=== PATIENT | male | born 1975 | race Caucasian/White ===

== ENCOUNTER → 2018-12-11 10:20 | Outpatient (CLI) | payer OTHER, SELFPAY ==
[2018-12-11 11:16] LABS: Hematocrit 45.8 % (41-53); Hemoglobin 15.7 g/dL (13.5-17.5); Mean Corpuscular HGB Conc 34.2 % (30-36); Mean Corpuscular Hemoglobin 29.6 PG (26-34); Mean Corpuscular Volume 86.6 fL (80-100); Platelet Count 282 X10^3/uL (150-400); Red Blood Cell Count 5.29 X10^6/uL (4.5-5.9); Red Cell Distribution Width 13.1 % (11.6-14.8); White Blood Cell Count 5.1 X10^3/uL (4.5-11.0)
[2018-12-11 11:36] LABS: Alanine Aminotransferase 28 IU/L (21-72); Albumin 4.2 g/dL (3.5-5.0); Albumin Globulin Ratio 1.4 (1.0-2.8); Alkaline Phosphatase 76 U/L (38-126); Aspartate Aminotransferase 21 IU/L (17-59); Bilirubin Total 0.4 mg/dL (0.2-1.3); Blood Urea Nitrogen 18 mg/dL (9-20); Calcium 9.1 mg/dL (8.4-10.2); Carbon Dioxide 27 mmol/L (22-32); Chloride 99 mmol/L (98-107); Cholesterol 172 mg/dL (140-199); Estimated Glomerular Filt Rate > 60.0 mL/min (>60); Globulin 2.9 g/dL (1.7-4.1); Glucose 91 mg/dL (70-100); HDL Cholesterol 37 mg/dL (40-60); HEMOLYSIS < 15 (0-50); LDL Cholesterol Calculated 119 mg/dL (<100); Potassium 3.9 mmol/L (3.4-5.1); Sodium 136 mmol/L (137-145); Total Protein 7.1 g/dL (6.3-8.2); Triglycerides 82 mg/dL (35-150)
[2018-12-11 11:54] LABS: Neutrophils Absolute Manual 2040 /uL (3000-5900); RBC Morphology Normal Morphology; Total Cells Counted 100
== END ==
PROVIDERS: PCP Family Medicine; Visit Provider Family Medicine
DX: I10 Essential (primary) hypertension (principal)
CPT/HCPCS: 36415; 80053; 80061; 85025

== ENCOUNTER → 2021-10-06 08:02 | Outpatient (CLI) | payer OTHER, SELFPAY ==
--- NOTE | 2021-10-06 08:05 | DI.RAD.S_ITS ---
PROCEDURE: XR SHOULDER LT MIN 2V INDICATIONS: Possible calcific tendinitis; impingement; pain TECHNIQUE: 3 views of the shoulder were acquired. COMPARISON: None. FINDINGS: Bones: No fractures or dislocations. No suspicious bony lesions. Visualized ribs appear intact. Soft tissues: No suspicious soft tissue calcifications. IMPRESSION: No radiographic evidence of calcific tendinitis. Dictated by: Preeti Bro MD, PhD on 10/06/2021 at 11:29 Approved by: Preeti Bro MD, PhD on 10/06/2021 at 11:29
== END ==
PROVIDERS: PCP Family Medicine; Referring Provider Physician Assistant; Visit Provider Physician Assistant
DX: M25.512 Pain in left shoulder (principal); M75.40 Impingement syndrome of unspecified shoulder
CPT/HCPCS: 73030

== ENCOUNTER → 2021-11-05 07:50 | Outpatient (CLI) | payer OTHER, SELFPAY ==
[2021-11-05 08:14] LABS: Add Manual Diff / Slide Review NO; Basophils Absolute Auto 0 /uL (0-100); Basophils Percent Auto 0.8 % (0-2); Eosinophils Absolute Auto 100 /uL (0-450); Eosinophils Percent Auto 1.8 % (2-4); Hematocrit 45.5 % (41-53); Hemoglobin 15.6 g/dL (13.5-17.5); Lymphocytes Absolute Auto 2000 /uL (1100-4500); Lymphocytes Percent Auto 37.5 % (25-40); Mean Corpuscular HGB Conc 34.3 % (30-36); Mean Corpuscular Hemoglobin 29.5 PG (26-34); Monocytes Absolute Auto 600 /uL (0-900); Monocytes Percent Auto 10.3 % (3-14); Neutrophils Absolute Auto 2700 /uL (1500-7000); Neutrophils Percent Auto 49.6 % (50-75); Platelet Count 253 X10^3/uL (150-400); Red Blood Cell Count 5.29 X10^6/uL (4.5-5.9); Red Cell Distribution Width 13.5 % (11.6-14.8); White Blood Cell Count 5.4 X10^3/uL (4.5-11.0)
[2021-11-05 08:31] LABS: Alanine Aminotransferase 40 IU/L (<50); Albumin 4.2 g/dL (3.5-5.0); Albumin Globulin Ratio 1.6 (1.0-2.8); Alkaline Phosphatase 55 U/L (38-126); Aspartate Aminotransferase 25 IU/L (17-59); Bilirubin Total 0.7 mg/dL (0.2-1.3); Blood Urea Nitrogen 15 mg/dL (9-20); Calcium 9.1 mg/dL (8.4-10.2); Carbon Dioxide 25 mmol/L (22-32); Chloride 102 mmol/L (98-107); Cholesterol 181 mg/dL (140-199); Estimated Glomerular Filt Rate > 60.0 mL/min (>60); Globulin 2.6 g/dL (1.7-4.1); Glucose 101 mg/dL (70-100); HDL Cholesterol 37 mg/dL (40-60); HEMOLYSIS < 15 (0-50); LDL Cholesterol Calculated 130 mg/dL (<100); Potassium 4.2 mmol/L (3.4-5.1); Sodium 137 mmol/L (137-145); Total Protein 6.8 g/dL (6.3-8.2); Triglycerides 69 mg/dL (35-150)
[2021-11-05 08:56] LABS: Thyroid Stimulating Hormone 2.38 uIU/mL (0.47-4.68)
== END ==
PROVIDERS: PCP Family Medicine; Referring Provider Physician Assistant; Visit Provider Physician Assistant
DX: I10 Essential (primary) hypertension (principal); R53.83 Other fatigue; E78.5 Hyperlipidemia, unspecified
CPT/HCPCS: 36415; 80053; 80061; 84443; 85025

== ENCOUNTER → 2021-12-09 09:53 | Outpatient (CLI) | payer OTHER, SELFPAY ==
--- NOTE | 2021-12-09 09:58 | DI.CT.S_ITS ---
PROCEDURE: CT SOFT TISSUE NECK W CON INDICATIONS: non tender lymphadenopathy LEFT TECHNIQUE: After the administration of intravenous contrast, 3.0 mm axial sections acquired from the sella to the aortic arch. Additional oblique axial 3.0 mm sections acquired through the pharynx. 3 mm thick coronal and sagittal reformats were generated. For radiation dose reduction, the following was used: automated exposure control. COMPARISON: None. FINDINGS: Image quality: Excellent. Lymph nodes: Mildly enlarged bilateral level 2A neck lymph nodes. Largest left level 2A neck lymph node measures 1.1 centimeter in short axis. Largest right level 2A neck lymph node measures 1.1 centimeter in short axis. Vessels: Visualized vasculature appears patent. Neck spaces: The oropharynx, nasopharynx, and pharynx demonstrate no mucosal lesions. The vocal cords, false vocal cords, pyriform sinuses, epiglottis, vallecula, and tongue base all appear normal. Extramucosal spaces appear unremarkable. No abnormal mass, soft tissue inflammation or soft tissue fluid collections identified deep to metallic BB localizer placed over the left lateral soft tissues of the neck in the region of clinical interest. Glands: The parotid and submandibular glands appear normal. Thyroid gland is within normal limits Miscellaneous: Visualized brain and orbits appear normal. Lung apices appear clear. Superficial soft tissues appear normal. Bones: No suspicious bony lesions. Left maxillary sinus mucous retention cyst versus polyp. The mastoids appear unremarkable. IMPRESSION: 1. Mild bilateral level 2A neck lymphadenopathy which could be reactive or neoplastic. 2. No mucosal based neoplasm. Dictated by: Preeti Bro MD, PhD on 12/09/2021 at 15:44 Approved by: Preeti Bro MD, PhD on 12/09/2021 at 15:51
== END ==
PROVIDERS: PCP Family Medicine; Referring Provider Physician Assistant; Visit Provider Physician Assistant
DX: R59.0 Localized enlarged lymph nodes (principal)
CPT/HCPCS: 70491

== ENCOUNTER → 2022-01-04 09:06 | Outpatient (CLI) | payer OTHER, SELFPAY ==
[2022-01-04 11:04] LABS: COVID19 -Nasal RAPID Negative (Negative)
== END ==
PROVIDERS: PCP Family Medicine; Visit Provider Surgery
DX: Z20.822 Contact with and (suspected) exposure to COVID-19 (principal); Z01.818 Encounter for other preprocedural examination
CPT/HCPCS: 87635; C9803

== ENCOUNTER 2022-01-05 06:51 | Day surgery (SDC) | payer OTHER, SELFPAY ==
[2021-12-30 08:00] VITALS: BMI 37.5
--- NOTE | 2022-01-05 | PATH_ITS ---
[facility] Accession Number: [id number] No. of containers..01 Tissue No. of containers..01 Tissue No. of containers..04 Other (Miscellaneous) . 01 Material submitted: . PART A: lymph node - LEFT NECK LYMPH NODE PART B: lymph node - LEFT NECK LYMPH NODE . 01 Diagnosis: A. Neck, Left Side, Lymph Node, Excisional Biopsy: Primarily mature adipose tissue with focal fat necrosis. Scant fibrous tissue. Lymphoid tissue not identified. . B. Neck, Left Side, Lymph Node, Excisional Biopsy: Primarily mature adipose tissue with focal fat necrosis. Scant fibrous tissue. Lymphoid tissue not identified. [facility] 01/12/2022 1520 Local . 01 Comment: The adipose tissue in specimen B exhibits a small amount of brown fat. . The four submitted slides which appear to represent touch preps or smears are reviewed and are noncontributory. . 01 Electronically signed: . Annette Sibley MD, Pathologist NPI- [id number] . 01 Gross description: . A. Received in formalin, labeled with the patient's name and left neck lymph node, and consists of a single yellow to pink-rees lymph node candidate measuring 0.6 x 0.4 x 0.3 cm. The specimen is submitted entirely and intact in cassette A1. B. Received in formalin, labeled with the patient's name and left neck lymph node, and consists of a yellow to pink-rees lymph node candidate measuring 0.8 x 0.5 x 0.3 cm. The specimen is submitted entirely and intact in cassette B1. Parts C and D consist of two slides received in a cardboard slide floyd labeled with the patient's name and left neck lymph node. The slides are not individually labled. Parts E and F consist of two unstained slides in a container of alcohol labeled with the patient's name and left neck lymph node. However, the slides are not individually labeled. ([id number]) /[facility] 01/07/2022 0335 Local . 01 Pathologist provided ICD-10: R59.1 . 01 CPT . 492675, 658439 Specimen Comment: A courtesy copy of this report has been sent to [phone] Performed at: 01 [facility] [address] [place] [address], [place], [place] [id number] MD Kenney Sol MD Phone: [phone]
[2022-01-05 07:26] VITALS: BP 128/80; PULSE 97; RESP 20; TEMP 36.5; O2SAT 97; BMI 37.5
[2022-01-05 07:33] VITALS: BMI 37.5
[2022-01-05] MEDS: LACTATED RINGERS 1,000 ML 100 ML IV (07:33)
--- NOTE | 2022-01-05 07:37 | PM.PREOP ---
Pre-operative Note Interval Note History & Physical reviewed/Exam performed by Physician: Yes Changes to H&P: No
[2022-01-05] MEDS: CEFAZOLIN 2 GM/20 ML SYRINGE IV (07:55)
--- NOTE | 2022-01-05 08:04 | SUR.OPER ---
Supine on padded OR bed, head on pillow, right arm secured on padded arm board at <90 degrees abduction, left arm padded with gel pad and tucked at side with draw sheet, egs uncrossed, safety belt at abdomen, tape over blanket over lower legs, gel pad under bilateral heels.
[2022-01-05] MEDS: BUPIVACAINE 0.25% (PF) VIAL 30 ML INJ (08:10)
[2022-01-05 08:45] VITALS: BP 128/77; PULSE 83; RESP 12; TEMP 36.1; O2SAT 94
[2022-01-05 08:50] VITALS: BP 121/77; PULSE 81; RESP 11; O2SAT 95
[2022-01-05 08:54] VITALS: BP 110/76; PULSE 78; RESP 11; O2SAT 94
[2022-01-05 09:00] VITALS: BP 123/81; PULSE 77; RESP 13; TEMP 36.2; O2SAT 95
[2022-01-05 09:07] VITALS: BP 117/75; PULSE 77; RESP 9; TEMP 36.2; O2SAT 96
--- NOTE | 2022-01-05 09:14 | PM.OP.1 ---
Operative Date/Time/Diagnoses Date of procedure: 01/05/22 Time of procedure: 09:14 Pre-op diagnosis: left cervical lymphadenopathy Post-op diagnosis: same Procedure & Clinicians Procedure: Excisional biopsy of left cervical lymph nodes Same procedure as scheduled: Yes Indications: Cervical lymphadenopathy Surgeon: Veto Kirk Anesthesia Type: General Operative Notes Findings: small cluster of left cervical lymphnodes beneath the sterocleoidomastoid muscle. Specimen(s): other (left cervical nodes) Estimated Blood Loss (mL): 5 Procedure in detail: Patient was brought to the operating room placed supine on the table. Bilateral lower extremity compression devices were applied. He received Ancef prior to skin incision. General anesthesia was induced he was intubated with an endotracheal tube. The left neck was prepped and draped in sterile fashion. Time-out was performed. The anterior border of the sternocleidomastoid was marked. A incision in zone 2 of the neck was made just anterior to the sternocleidomastoid. The platysma was incised. The sternocleidomastoid muscle was retracted posteriorly. Superficial to the carotid sheath there were was a cluster slightly enlarged cervical lymph nodes diameter less than 1 cm. The lymphatic tissue was excised using electro cautery. The specimen was passed off the field. Wound was checked for hemostasis. The subcutaneous tissue was then closed with 3-0 Vicryl skin closed with 4-0 Monocryl followed by Dermabond and Steri-Strips. Patient tolerated procedure extubated transferred to recovery in stable condition. Complications: none Post-operative Condition: stable Disposition: same day surgery
== END 2022-01-05 09:28 | disposition home or self-care (01) ==
PROVIDERS: PCP Family Medicine; Referring Provider Surgery; Visit Provider Surgery
PROC: (CPT 38510; principal; 2022-01-05 07:45)
DX: M79.89 Other specified soft tissue disorders (principal); I10 Essential (primary) hypertension; F41.9 Anxiety disorder, unspecified
CPT/HCPCS: 38510; 82962; J0690; J1100; J2250; J2405; J2704; J3010

== ENCOUNTER 2022-04-30 02:41 | Emergency (ER) | payer OTHER, SELFPAY ==
[2022-04-30 02:58] VITALS: BP 144/77; PULSE 86; RESP 18; TEMP 36.6; O2SAT 99; BMI 36.8
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
[2022-04-30] MEDS: dexAMETHasone 4 MG TABLET 12 MG PO (04:03)
[2022-04-30 04:06] VITALS: BP 116/68; PULSE 78; RESP 17; O2SAT 99
== END 2022-04-30 04:06 | disposition home or self-care (01) ==
PROVIDERS: Emergency Provider Emergency Medicine; PCP Family Medicine
DX: T78.3XXA Angioneurotic edema, initial encounter (principal)
CPT/HCPCS: 99283

== ENCOUNTER → 2023-05-29 09:26 | Outpatient (CLI) | payer OTHER, SELFPAY ==
[2023-05-29 09:53] LABS: Semen Sperm Prescence Post-Vas Absent (ABSENT)
== END ==
PROVIDERS: PCP Family Medicine; Referring Provider Family Medicine; Visit Provider Family Medicine
DX: Z30.2 Encounter for sterilization (principal)
CPT/HCPCS: 89321

== ENCOUNTER 2024-06-21 06:50 | Day surgery (SDC) | payer OTHER, SELFPAY ==
--- NOTE | 2024-06-21 | PATH_ITS ---
[facility] Accession Number: [id number] No. of containers..04 Tissue . 01 Material submitted: . PART A: colon - CECUM POLYP PART B: colon - DESCENDING COLON POLYP PART C: colon - SIGMOID COLON POLYP PART D: rectum - RECTUM . 01 Diagnosis: Part A: CECUM POLYP: Tubular adenoma. . Part B: DESCENDING COLON POLYP: Tubular adenoma. . Part C: SIGMOID COLON POLYP: Hyperplastic polyp. . 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 No evidence of malignancy. [facility] 06/26/20241419 Local . 01 Electronically signed: . Kenney Sol MD, Pathologist NPI- [id number] . 01 Gross description: . A. Received in formalin with two patient identifiers and cecum polyp, is a single rees soft tissue fragment 0.5 cm in greatest dimension. Submitted in cassette A1. . B. Received in formalin with two patient identifiers and descending colon polyp, is a single rees soft tissue fragment 0.8 x 0.5 x 0.4 cm. Inked blue, bisected, and submitted entirely in cassette B1. . C. Received in formalin with two patient identifiers and sigmoid polyp, is a single rees soft tissue fragment 0.3 cm in greatest dimension. Submitted in cassette C1. . D. Received in formalin with two patient identifiers and rectum polyp, is a single rees soft tissue fragment 0.6 x 0.5 x 0.5 cm. Inked blue, bisected, and submitted entirely in cassette D1. ([id number]) /[facility] 06/26/2024 1420 Local . 01 Microscopic: . Part D: RECTUM: Polypoid colonic mucosa with a proliferation of spindled cells with a relatively uniform appearance, ovoid nuclei with a monomorphic appearance, and pale indistinct eosinophilic cytoplasm. The spindled cells entwine around colonic crypts, which have a hyperplastic serrated appearance. No significant pleomorphism or mitotic activity is seen. . 01 Pathologist provided ICD-10: D12.0, D12.4, D12.8, K63.5 . 01 CPT . 833980, 427385, 622032, 276720 Specimen Comment: A courtesy copy of this report has been sent to [facility] Performed at: [address] [facility] [id number] MD Kenney Sol MD Phone: [phone]
[2024-06-21 07:16] VITALS: BP 137/89; PULSE 89; RESP 18; TEMP 36.6; O2SAT 95
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
--- NOTE | 2024-06-21 08:04 | PM.OP.COLON ---
Operative Date/Time/Diagnoses Date of procedure: 06/21/24 Time of procedure: 08:05 Pre-op diagnosis: Colon screening Post-op diagnosis: other (Four adenomatous polyps greater than 10 mm in size, of the cecum, descending, sigmoid and rectum) Procedure & Clinicians Study performed: Colonoscopy with cold snare polypectomy x4 Same procedure as scheduled: Yes Indications: Colon screening, Surgeon: Carlos Mathias Procedure Notes SCOAP/Timeout: performed Procedure in detail: Time-out was performed. Mac was induced. Patient was placed in left lateral decubitus position. The perineum was inspected without any gross abnormality. Lubricated pediatric colonoscope was inserted and advanced to the cecum. The terminal ileum was intubated. The colonoscope was withdrawn slowly inspecting the circumference of the colon. Polyps ranging in size from 10 mm to 14 mm were found in the cecum, descending colon, sigmoid and rectum. All polyps were removed completely with cold snare polypectomy and retrieved completely. Very small polyps may have been missed, prep quality was adequate. Retroflexed view of the rectum showed small, non prolapsed nonbleeding internal hemorrhoids. The scope was withdrawn the patient was taken to PACU in good condition. Scope withdrawal time: 10 Sedation minutes: 18 Findings: polyp(s) Specimen(s): other (Polyps in the cecum, descending, sigmoid, rectum as 4 separate specimen) Complications: none Impression: Multiple polyps, next colonoscopy in 3 years Post-procedure Recommendations: Colonoscopy in 3 years Follow up: as needed Disposition: PACU
[2024-06-21 08:06] VITALS: BP 137/78; PULSE 83; RESP 17; TEMP 36.3; O2SAT 95
[2024-06-21 08:11] VITALS: BP 118/70; PULSE 84; RESP 12; O2SAT 96
[2024-06-21 08:21] VITALS: BP 111/60; PULSE 76; RESP 14; TEMP 37; O2SAT 94
== END 2024-06-21 08:24 | disposition home or self-care (01) ==
PROVIDERS: PCP Family Medicine; Referring Provider Surgery; Visit Provider Surgery
PROC: 0DJD8ZZ Inspection of Lower Intestinal Tract, Via Natural or Artificial Opening Endoscopic (ICD-10-PCS; CPT 45378; principal; 2024-06-21 07:45)
DX: Z12.11 Encounter for screening for malignant neoplasm of colon (principal); D12.0 Benign neoplasm of cecum; D12.4 Benign neoplasm of descending colon; K63.5 Polyp of colon; K62.1 Rectal polyp
CPT/HCPCS: 45385; J2704

== ENCOUNTER → 2024-06-26 07:46 | Outpatient (CLI) | payer OTHER, SELFPAY ==
[2024-06-26 09:14] LABS: Add Manual Diff / Slide Review NO; Basophils Absolute Auto 0 /uL (0-100); Basophils Percent Auto 0.7 % (0-2); Eosinophils Absolute Auto 100 /uL (0-450); Eosinophils Percent Auto 1.7 % (2-4); Hematocrit 46.4 % (41-53); Hemoglobin 15.6 g/dL (13.5-17.5); Lymphocytes Absolute Auto 2300 /uL (1100-4500); Lymphocytes Percent Auto 34.4 % (25-40); Mean Corpuscular HGB Conc 33.6 % (30-36); Mean Corpuscular Hemoglobin 29.4 PG (26-34); Mean Corpuscular Volume 87.7 fL (80-100); Monocytes Absolute Auto 600 /uL (0-900); Monocytes Percent Auto 9.6 % (3-14); Neutrophils Absolute Auto 3600 /uL (1500-7000); Neutrophils Percent Auto 53.6 % (50-75); Platelet Count 254 X10^3/uL (150-400); Red Blood Cell Count 5.29 X10^6/uL (4.5-5.9); Red Cell Distribution Width 13.6 % (11.6-14.8); White Blood Cell Count 6.8 X10^3/uL (4.5-11.0)
[2024-06-26 09:38] LABS: Alanine Aminotransferase 29 IU/L (<50); Albumin 4.2 g/dL (3.5-5.0); Albumin Globulin Ratio 1.8 (1.0-2.8); Alkaline Phosphatase 71 U/L (38-126); Aspartate Aminotransferase 31 IU/L (17-59); BUN Creatinine Ratio 17.4 (6-22); Bilirubin Total 0.8 mg/dL (0.2-1.3); Blood Urea Nitrogen 15 mg/dL (9-20); Calcium 9.2 mg/dL (8.4-10.2); Carbon Dioxide 27 mmol/L (22-32); Chloride 103 mmol/L (98-107); Cholesterol 175 mg/dL (140-199); Estimated Glomerular Filt Rate > 60 mL/min (>60); Globulin 2.4 g/dL (1.7-4.1); Glucose 94 mg/dL (70-100); HDL Cholesterol 37 mg/dL (40-60); HEMOLYSIS 21 (0-50); LDL Cholesterol Calculated 123 mg/dL (<100); Potassium 4.3 mmol/L (3.4-5.1); Sodium 137 mmol/L (137-145); Total Protein 6.6 g/dL (6.3-8.2); Triglycerides 74 mg/dL (35-150)
[2024-06-26 10:08] LABS: TSH w/ Reflex to FT4 3.11 uIU/mL (0.47-4.68)
== END ==
PROVIDERS: PCP Family Medicine; Referring Provider Family Medicine; Visit Provider Family Medicine
DX: I10 Essential (primary) hypertension (principal); F41.9 Anxiety disorder, unspecified
CPT/HCPCS: 36415; 80053; 80061; 84443; 85025

== ENCOUNTER → 2024-06-26 15:57 | Outpatient (CLI) | payer OTHER, SELFPAY ==
--- NOTE | 2024-06-26 15:58 | DI.RAD.S_ITS ---
PROCEDURE: XR HAND RT MIN 3V INDICATIONS: Right hand pain TECHNIQUE: 3 views of the hand(s) acquired. COMPARISON: None. FINDINGS: Bones: No fractures or dislocations. Carpal bones are normally aligned. No suspicious bony lesions. Soft tissues: No suspicious soft tissue calcifications. IMPRESSION: No acute bony abnormality. Dictated by: Lul Santos M.D. on 06/26/2024 at 16:36 Approved by: Lul Santos M.D. on 06/26/2024 at 16:36
== END ==
PROVIDERS: PCP Family Medicine; Referring Provider Physician Assistant Medical; Visit Provider Physician Assistant Medical
DX: M79.641 Pain in right hand (principal); I10 Essential (primary) hypertension; F41.9 Anxiety disorder, unspecified
CPT/HCPCS: 36415; 73130; 80053; 80061; 84443; 85025